=== PATIENT | male | born 1975 | race Hispanic/Latino ===

== ENCOUNTER 2022-08-28 01:55 | Emergency (ER) | payer MEDICAID | END 2022-08-28 04:36 | disposition home or self-care (01) | LOC: JD.ED 01:55 | DX: S06.0X0A Concussion without loss of consciousness, initial encounter (principal); E66.9 Obesity, unspecified; Z68.41 Body mass index [BMI] 40.0-44.9, adult; Z91.018 Allergy to other foods; Z88.2 Allergy status to sulfonamides; W18.09XA Striking against other object with subsequent fall, initial encounter | CPT/HCPCS: 70450; 70450-26; 72125; 72125-26; 99283 ==